=== PATIENT | male | born 1985 | race African-American/Black ===

== ENCOUNTER 2017-10-29 21:20 | Emergency (ER) | payer SELFPAY ==
--- NOTE | 2017-10-29 21:52 | ER ---
Nurse's Notes [facility] Name: Adriano Barahona Age: 32 yrs Sex: Male : 1985 Arrival Date: 10/29/2017 Time: 21:24 Bed Medical Screen Private MD: Diagnosis: Encounter for medical screening without medical condition found Presentation: 10/29 21:30 Presenting complaint: EMS states: swelling to bilateral feet. Transition of care: tl3 patient was not received from another setting of care. Onset of symptoms was October 29, 2017 at 21:45. Risk Assessment: Do you want to hurt yourself or someone else? Patient reports no desire to harm self or others. Initial Sepsis Screen: Does the patient meet any 2 criteria? No. Patient's initial sepsis screen is negative. Does the patient have a suspected source of infection? No. Patient's initial sepsis screen is negative. Care prior to arrival: None. 21:30 Method Of Arrival: EMS: [facility] 3 21:30 Acuity: MALIK 5 tl3 Triage Assessment: 21:46 General: Appears uncomfortable, unkempt, Behavior is calm, cooperative, appropriate for tl3 age. Pain: Complains of pain in right foot and left foot Pain currently is 8 out of 10 on a pain scale. EENT: No signs and/or symptoms were reported regarding the EENT system. Neuro: Cardiovascular: Patient's skin is warm and dry. Respiratory: Airway is patent Respiratory effort is even, unlabored, Respiratory pattern is regular, symmetrical. GI: No signs and/or symptoms were reported involving the gastrointestinal system. : No signs and/or symptoms were reported regarding the genitourinary system. Derm: No signs and/or symptoms reported regarding the dermatologic system. Musculoskeletal: Reports swelling to bilateral feet after walking several miles today. Historical: - Allergies: 21:46 No Known Allergies; tl3 - PMHx: 21:46 Depression; tl3 - PSHx: 21:46 None; tl3 - Immunization history:: Adult Immunizations unknown. - Social history:: Smoking status: unknown. - Ebola Screening: : No symptoms or risks identified at this time. Screenin:50 Abuse screen: Denies threats or abuse. Nutritional screening: No deficits noted. tl3 Tuberculosis screening: No symptoms or risk factors identified. Fall Risk None identified. Assessment: 21:50 Reassessment: No changes from previously documented assessment. tl3 Vital Signs: 21:46 BP 123 / 82; Pulse 80; Resp 16; Temp 98.6(O); Pulse Ox 98% ; tl3 ED Course: 21:24 Patient arrived in ED. tl3 21:25 Roberto Simmons MD is Attending Physician. tw4 21:44 Nathalie Rivera, RN is Primary Nurse. tl3 21:45 Triage completed. tl3 21:46 Arm band placed on right wrist. tl3 21:50 Patient has correct armband on for positive identification. tl3 21:50 No provider procedures requiring assistance completed. Patient did not have IV access tl3 during this emergency room visit. Administered Medications: No medications were administered Outcome: 21:50 Discharged to home ambulatory. tl3 21:50 Condition: stable 21:50 Discharge instructions given to patient, Instructed on discharge instructions, follow up and referral plans. 21:51 Discharge ordered by . aa1 21:54 Patient left the ED. tl3 Signatures: Nai Barajas RN RN aa1 Roberto Simmons MD MD tw4 Nathalie Rivera, GOVIND RN tl3
--- NOTE | 2017-10-29 21:52 | EDPHYS ---
Physician Documentation [facility] Name: Adriano Barahona Age: 32 yrs Sex: Male : 1985 Arrival Date: 10/29/2017 Time: 21:24 Bed Medical Screen Private MD: ED Physician Roberto Simmons HPI: 10/29 21:29 This 32 yrs old Black Male presents to ER via Unassigned with complaints of Foot Pain. tw4 21:29 The patient presents with swelling, tenderness. The complaints affect the left foot, tw4 right foot. Context: The problem was sustained at home. Onset: The symptoms/episode began/occurred last week. Modifying factors: The symptoms are alleviated by nothing, the symptoms are aggravated by nothing. Associated signs and symptoms: The patient has no apparent associated signs or symptoms. Severity of symptoms: At their worst the symptoms were mild, in the emergency department the symptoms are unchanged. The patient has not experienced similar symptoms in the past. The patient has not recently seen a physician. Historical: - Allergies: 21:46 No Known Allergies; tl3 - PMHx: 21:46 Depression; tl3 - PSHx: 21:46 None; tl3 - Immunization history:: Adult Immunizations unknown. - Social history:: Smoking status: unknown. - Ebola Screening: : No symptoms or risks identified at this time. ROS: 10/30 02:56 MS/extremity: Positive for pain, swelling, tenderness, of the right foot and left foot. tw4 Constitutional: Negative for fever, chills, and weight loss, Cardiovascular: Negative for chest pain, palpitations, and edema, Respiratory: Negative for shortness of breath, cough, wheezing, and pleuritic chest pain, Abdomen/GI: Negative for abdominal pain, nausea, vomiting, diarrhea, and constipation, Back: Negative for injury and pain, Skin: Negative for injury, rash, and discoloration, Neuro: Negative for headache, weakness, numbness, tingling, and seizure. Exam: 02:56 Constitutional: This is a well developed, well nourished patient who is awake, alert, tw4 and in no acute distress. Head/Face: Normocephalic, atraumatic. Chest/axilla: Normal chest wall appearance and motion. Nontender with no deformity. No lesions are appreciated. Cardiovascular: Regular rate and rhythm with a normal S1 and S2. No gallops, murmurs, or rubs. Normal PMI, no JVD. No pulse deficits. Respiratory: Lungs have equal breath sounds bilaterally, clear to auscultation and percussion. No rales, rhonchi or wheezes noted. No increased work of breathing, no retractions or nasal flaring. Abdomen/GI: Soft, non-tender, with normal bowel sounds. No distension or tympany. No guarding or rebound. No evidence of tenderness throughout. Back: No spinal tenderness. No costovertebral tenderness. Full range of motion. Neuro: Awake and alert, GCS 15, oriented to person, place, time, and situation. Cranial nerves II-XII grossly intact. Motor strength 5/5 in all extremities. Sensory grossly intact. Cerebellar exam normal. Normal gait. Psych: Awake, alert, with orientation to person, place and time. Behavior, mood, and affect are within normal limits. 02:56 Musculoskeletal/extremity: Extremities: noted in the right foot: pain, noted in the left foot: swelling, tenderness. Vital Signs: 10/29 21:46 BP 123 / 82; Pulse 80; Resp 16; Temp 98.6(O); Pulse Ox 98% ; tl3 MDM: 21:25 Patient medically screened. tw4 10/30 02:56 Differential diagnosis: fracture, sprain, arthritis, gout, cellulitis. Data reviewed: tw4 vital signs, nurses notes. Data interpreted: site monitor: rhythm is with Pulse oximetry: Interpretation:. Test interpretation: by ED physician or midlevel provider: ECG. Counseling: I had a detailed discussion with the patient and/or guardian regarding: the historical points, exam findings, and any diagnostic results supporting the discharge/admit diagnosis. Medical screen evaluation completed. [facility] emergency medical condition absent. Special discussion: I discussed with the patient/guardian in detail that at this point there is no indication for admission to the hospital. It is understood, however, that if the symptoms persist or worsen the patient needs to return immediately for re-evaluation. Administered Medications: No medications were administered Disposition: 02:58 Chart complete. tw4 Disposition: 10/29/17 21:51 Discharged to Home as Medical Screen. Impression: Encounter for medical screening without medical condition found. - Condition is Stable. - Medication Reconciliation Form, Thank You Letter, Antibiotic Education, Prescription Opioid Use form. Signatures: Nai Barajas RN RN aa1 Roberto Simmons MD MD tw4 Nathalie Rivera RN RN tl3 Corrections: (The following items were deleted from the chart) 10/29 21:54 21:51 10/29/2017 21:51 Discharged to Home as Medical Screen. Impression: Encounter for tl3 medical screening without medical condition found. Condition is Stable. Forms are Medication Reconciliation Form, Thank You Letter, Antibiotic Education, Prescription Opioid Use. aa1
== END 2017-10-29 21:54 | disposition home or self-care (01) ==
LOC: ER 21:20
DX: M79.672 Pain in left foot (principal)
CPT/HCPCS: 99283